=== PATIENT | female | born 1975 | race Asian ===

== ENCOUNTER 2018-12-19 08:19 | Outpatient (CLI) | payer OTHER ==
--- NOTE | 2018-12-19 09:19 | MRI ---
MRI Lumbar Spine WO Con History: Pain Comparison: None. Findings: T2 hyperintense foci are present within both renal parenchyma. The aortic contour is nonane urysmal. No retroperitoneal periaortic adenopathy. No marrow infiltrative process. Conus medullaris terminates near the mid L1 vertebral body. Levels are as follows: L1/L2: Normal disc. No neural foraminal or spinal canal narrowing. L2/L3: Normal disc. No neural foraminal or spinal canal narrowing. L3/L4: Mild disc desiccation. Low-grade circumferential disc bulge. Moderate hypertrophic facet arthr opathy. Moderate bilateral neural foraminal narrowing. Spinal canal measures approximately 9 mm. L4/L5: Moderate disc desiccation and height loss. Large posterior annular fissure. Moderate hypertrop hic facet arthropathy. Moderate bilateral neural foraminal narrowing. L5/S1: Moderate degenerative disc space height loss. Circumferential disc bulge. Large central annula r fissure posteriorly. Mild facet arthropathy. Mild bilateral neural foraminal narrowing. Impression: Mild multilevel spondylosis as described, greatest at L3/L4 and L4/L5.
== END 2018-12-19 08:20 | disposition home or self-care (01) ==
LOC: SCSMRI 08:19
PROVIDERS: ATTEND Physical Medicine & Rehabilitation
DX: M54.5 Low back pain (principal); M79.18 Myalgia, other site; M47.816 Spondylosis without myelopathy or radiculopathy, lumbar region
CPT/HCPCS: 72148

== ENCOUNTER 2019-07-03 12:24 | Outpatient (CLI) | payer OTHER ==
--- NOTE | 2019-07-03 16:06 | CT ---
EXAM: CT NECK SOFT TISSUE POST CONTRAST: HISTORY:Cervical lymphadenopathy. COMPARISON:None CORRELATION:None FINDINGS: Brain parenchyma: No pathologic enhancement of the visualized brain parenchyma. Sinuses: Adequate aeration of the visualized paranasal sinuses and mastoid air cells. Nasopharynx:Adequate aeration. No mucosal abnormality. Oral cavity:Aerodigestive tract is patent. No mucosal abnormality. Limited evaluation of the oral cav ity due to dental amalgam artifact. Midline fatty raphae of the tongue is preserved. Hypopharynx: No mucosal abnormality. Larynx: No mucosal abnormality. Paraspinal muscles: Symmetric attenuation of the paraspinal muscles and symmetric attenuation of the sternocleidomastoid muscles.. Parotid and salivary glands: Symmetric attenuation of the parotid and submandibular glands Thyroid gland: Unremarkable. Spine: Vertebral body height is maintained. No fracture. Moderate degenerative change at C5-C6. Varyi ng degrees of central canal stenosis and neural foraminal narrowing due to degenerative change. Limited evaluation due to technique. Lymph nodes: No evidence of lymphadenopathy by size criteria. Upper normal right level 2 lymph node m easures 1.4 x 0.7 cm. There is a nonenlarged 0.7 x 1.0 cm left level 2 lymph node. Palpable marker: Palpable marker in the left and right submandibular region. No evidence of an associ ated mass, hematoma, cystic collection or lymphadenopathy. Bilateral nonenlarged level 1 lymph nodes are noted. Lung apices and upper mediastinum: No acute abnormality. IMPRESSION: No evidence of an a mass or lymphadenopathy at the level of the palpable marker, bilaterally. Transcribed Date/Time: 07/03/2019 4:24 PM
== END 2019-07-03 12:25 | disposition home or self-care (01) ==
LOC: SCSCT 12:24
PROVIDERS: ATTEND Internal Medicine
DX: R59.0 Localized enlarged lymph nodes (principal)
CPT/HCPCS: 70491; 70492

== ENCOUNTER 2019-10-02 09:44 | Observation (INO) | payer OTHER ==
--- NOTE | 2019-10-02 10:08 | CT ---
CT HEAD WITHOUT IV CONTRAST COMPARISON: None HISTORY: Level 1 stroke. Right-sided facial numbness with intermittent right-sided weakness. TECHNIQUE: Axial CT imaging at 5 mm intervals from vertex through skull base without contrast FINDINGS: Low-density area seen in the medial right occipital lobe. This is only seen on a single slice selecti on may be attributable to volume averaging. There is no evidence of an acute infarction, hemorrhage, mass effect, or midline shift. The ventricular system is normal in size, shape, and posit ion. Visualized paranasal sinuses are clear. Osseous structures appear intact. IMPRESSION: 1. No acute intracranial abnormality demonstrated. 2. Above findings discussed with Dr. Roberto in the emergency department on 10/02/2019 at 1004 hours.
[2019-10-02 10:13] LABS: #Basophils 0.1 thou/uL (0.0-0.2); #Eosinphils 0.1 thou/uL (0.0-0.7); #Lymphocytes 3.3 thou/uL (1.20-3.40); #Monocytes 0.3 thou/uL (0.11-0.59); #Neutrophils 4.6 thou/uL (1.40-6.50); %Basophils 1.4 % (0.0-1.0); %Eosinophils 1.5 % (0.0-10.0); %Lymphocytes 39.3 % (21.0-51.0); %Monocytes 3.6 % (0.0-10.0); %Neutrophils 54.2 % (42.0-75.0); Hemoglobin 14.8 g/dL (12.0-16.0); Mean Corpuscular Hemoglobin 28.7 pg (27.0-31.0); Mean Corpuscular Volume 89.7 fL (78.0-98.0); Mean Platelet Volume 6.7 fL (7.4-10.4); Platelet Count 378 thou/uL (130-400); RBC Distribution Width 12.5 % (11.5-14.5); Red Blood Cell (RBC) Count 5.17 mill/uL (4.20-5.40); White Blood Cell (WBC) Count 8.5 thou/uL (4.8-10.8)
[2019-10-02 10:22] LABS: INR-International Normal Ratio 0.9; PTT 27.8 SEC (22.9-36.1); Prothrombin Time 12.4 sec (12.0-14.7)
[2019-10-02 10:38] LABS: ALT (SGPT) 20 U/L (8-55); AST (SGOT) 15 U/L (5-34); Albumin 4.3 g/dL (3.5-5.0); Alkaline Phosphatase 49 U/L (40-110); Anion Gap 14 mmol/L (10-20); BUN (Urea Nitrogen) 9 mg/dL (7.0-18.7); Bilirubin, Total 0.8 mg/dL (0.2-1.2); Calc. Creatinine Clearance 0 mL/min (70-130); Calcium 9.8 mg/dL (7.8-10.44); Carbon Dioxide 26 mmol/L (22-29); Chloride 103 mmol/L (98-107); Estimated GFR-MDRD 43; Globulin 3.1 g/dL (2.4-3.5); Glucose 148 mg/dL (70-105); Protein, Total 7.4 g/dL (6.0-8.3); Sodium 139 mmol/L (136-145)
[2019-10-02 11:52] LABS: Bilirubin Negative (Negative); Blood, Urine Negative (Negative); Clarity Clear (Clear); Glucose, Urine (Dipstick) Normal (Negative); Leukocyte Negative Leu/uL (Negative); Nitrite Negative (Negative); Protein, Urine (Dipstick) Negative (Neg-Trace); Urobilinogen Normal mg/dL (Less than 2)
[2019-10-02] MEDS ORDERED: Aspirin Chewable 81 MG TAB ONE (12:28)
--- NOTE | 2019-10-02 14:05 | RAD ---
PORTABLE CHEST ONE VIEW: 10/02/19 at 9:48 a.m. HISTORY: Right sided facial numbness. FINDINGS: The heart size is normal. The lungs are clear. No significant bony abnormalities are seen. IMPRESSION: No acute process. POS: SIMEON
[2019-10-02 14:28] VITALS: BMI 30.9
--- NOTE | 2019-10-02 18:04 | PDOC.EVN ---
Event Note - Event Note Event Note: Ms. Ayala was see and examined and discussed with Davida MCCARTHY, and agree with the assessment, and plan.
[2019-10-02] MEDS: Sodium Chloride 0.9% 1,000 ML IV SCH (18:05)
--- NOTE | 2019-10-02 19:41 | HP ---
PRIMARY CARE PHYSICIAN: Neal Chowdary MD CHIEF COMPLAINT: Facial numbness and arm numbness. HISTORY OF PRESENT ILLNESS: The patient is a very pleasant 44-year-old female with past medical history significant for hypertension and acute kidney injury back in 2014. She presents to the ER today for facial numbness that began at work. 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 She had a slight headache at the time. This numbness had no aggravating or relieving factors to it and it still continues now, although the facial droop that she was told she had earlier has since resolved. She also states that the coordination in her right arm has improved. No associated nausea or vomiting. She feels slightly dizzy when she does move from sitting to standing or lying to sitting. She denies any chest pain or shortness of breath. No fevers. Not on any kind of blood thinning medications. Denies any ill contacts. She does admit to having multiple stressors at home currently and was almost tearful when talking about it. . Today, in the ER, they completed an EKG, which showed sinus rhythm at 87 beats per minute and a head CT which was negative for any acute hemorrhage. She was deemed not a tPA candidate because of a low NIH stroke score and it was perceived that the risk of bleeding was too significant for the deficits that she was having at that time. She was given aspirin 324 mg while in the ER after swallow evaluation and was admitted to our Stroke unit. PAST MEDICAL HISTORY: Significant for hypertension, GERD, depression with suicide attempts in the past, insomnia, acute kidney injury in 2014, and IBS. PAST SURGICAL HISTORY: Right wrist surgery, tubal ligation. ALLERGIES: PENICILLIN, WHICH CAUSES ANGIOEDEMA. MEDICATIONS: Include: 1. Lansoprazole 30 mg p.o. daily. 2. Celecoxib 200 mg p.o. b.i.d. p.r.n. 3. Lisinopril 20 mg p.o. daily. 4. Citalopram 30 mg p.o. at bedtime. 5. Clonazepam 1 mg p.o. at bedtime. 6. Pregabalin 100 mg p.o. b.i.d. 7. Bupropion 300 mg p.o. daily. 8. Flexeril 10 mg p.o. q.4 hours p.r.n. 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 She lives with her boyfriend and her two kids, age 22 and 15. She occasionally drinks alcohol. Denies any smoking or tobacco history. Denies any recreational drug use. FAMILY HISTORY: Mom is positive for thyroid cancer, hypertension, depression, diabetes. Dad at the age of 70. He was positive for COPD, hypertension, seizures, and depression. Brother is positive for diabetes. REVIEW OF SYSTEMS: All other review of systems are negative unless noted in the HPI. PHYSICAL EXAMINATION: VITAL SIGNS: Temp 98.4, pulse 85, respiratory rate 20, 97% on room air, blood pressure 111/65. GENERAL APPEARANCE: Age-appropriate female, in no acute distress. She was sleeping upon entry in the room but easily awakens and conversational. HEENT: PERRLA. NECK: Supple and symmetric without lymphadenopathy, JVD or bruits. HEART: Regular rate and rhythm without murmurs, gallops, or rubs. LUNGS: Clear to auscultation. No wheezes, rhonchi, or rales. ABDOMEN: Soft, nontender, nondistended. Positive bowel sounds. No masses. EXTREMITIES: No cyanosis, clubbing, or edema. Bilateral equal strength to upper and lower extremities. Normal muscle tone. PSYCHIATRY: Normal affect and behavior. Friendly. NEUROLOGICAL: Facial paresthesias to the right side. Cranial nerves intact. LABORATORY DATA: White blood cell count 8.5, hemoglobin and hematocrit 14.8 and 46.3. Sodium 139, potassium 4.0, BUN 9, creatinine 1.34, GFR 43, glucose 148. Urine shows no sign of infection. IMPRESSION: 1. Transient ischemic attack, acute, stable. 2. Facial paresthesias, acute, stable. 3. Suspected chronic kidney disease, chronic. PLAN: We will start her on a baby aspirin along with a statin and continue her home medications. We will arrange for an MRI of her brain and her spine without contrast along with a carotid Doppler ultrasound and echo. With the suspected chronic kidney disease, we will run IV fluids to see if there is any improvement overnight and draw another BMP in the morning along with CBC, hemoglobin A1c due to the elevated blood glucose in the ER and a fasting lipid along with a TSH. Stroke Team will evaluate her. She is to have neuro checks every 4 hours. Orthostatics are also to be included with her next set of vitals due to her complaining of dizziness when rising. Code status: FULL. DPOA; Maria L Lopez, her daughter. Her phone #[phone]. Job ID: [id number] MTDD
[2019-10-02] MEDS ORDERED: Atorvastatin Calcium 40 MG TAB PO SCH (21:00)
[2019-10-02] MEDS ORDERED: clonazePAM 1 MG TAB PO SCH (21:00)
[2019-10-02] MEDS ORDERED: Citalopram 20 MG TAB PO SCH (21:00)
[2019-10-02] MEDS: Pregabalin 50 MG CAP PO SCH (21:11)
[2019-10-03] MEDS: Sodium Chloride 0.9% 1,000 ML IV SCH ×2 (04:13→15:32)
[2019-10-03 05:11] LABS: #Basophils 0.1 thou/uL (0.0-0.2); #Eosinphils 0.2 thou/uL (0.0-0.7); #Lymphocytes 3.8 thou/uL (1.20-3.40); #Monocytes 0.4 thou/uL (0.11-0.59); #Neutrophils 3.3 thou/uL (1.40-6.50); %Basophils 1.3 % (0.0-1.0); %Lymphocytes 49.1 % (21.0-51.0); %Monocytes 5.1 % (0.0-10.0); %Neutrophils 42.5 % (42.0-75.0); Hemoglobin 13.2 g/dL (12.0-16.0); Mean Corpuscular HGB CONC 31.9 g/dL (32.0-36.0); Mean Corpuscular Hemoglobin 28.8 pg (27.0-31.0); Mean Corpuscular Volume 90.2 fL (78.0-98.0); Mean Platelet Volume 6.8 fL (7.4-10.4); Platelet Count 323 thou/uL (130-400); RBC Distribution Width 12.3 % (11.5-14.5); Red Blood Cell (RBC) Count 4.57 mill/uL (4.20-5.40); White Blood Cell (WBC) Count 7.8 thou/uL (4.8-10.8)
[2019-10-03 05:17] LABS: INR-International Normal Ratio 0.9; PTT 27.5 SEC (22.9-36.1)
[2019-10-03 05:28] LABS: Hemoglobin A1c 5.5 % (4.0-6.0)
[2019-10-03 06:17] LABS: Anion Gap 11 mmol/L (10-20); BUN (Urea Nitrogen) 11 mg/dL (7.0-18.7); Calc. Creatinine Clearance 82 mL/min (70-130); Calcium 8.2 mg/dL (7.8-10.44); Carbon Dioxide 24 mmol/L (22-29); Cardiac Risk 5.6 (Less than 4.5); Chloride 110 mmol/L (98-107); Cholesterol 191 mg/dl (< 200 Desired); Estimated GFR-MDRD 56; Glucose 100 mg/dL (70-105); HDL Cholesterol 34 mg/dL (>60 Neg Risk); LDL Cholesterol, Calculated 124 mg/dL; Potassium 3.8 mmol/L (3.5-5.1); Sodium 141 mmol/L (136-145); Triglycerides 166 mg/dL (Less than 150)
[2019-10-03] MEDS: Pregabalin 50 MG CAP PO SCH (08:04)
[2019-10-03] MEDS ORDERED: Lisinopril 20 MG TAB PO SCH (09:00)
[2019-10-03] MEDS ORDERED: Aspirin 81 mg Enteric Coated Tablet PO SCH (09:00)
[2019-10-03] MEDS ORDERED: Bupropion 150 MG XL TAB PO SCH (09:00)
--- NOTE | 2019-10-03 09:09 | MRI ---
MRI BRAIN WITHOUT CONTRAST: Indications: TIA. Right side numbness. FINDINGS: Ventricles have normal size and position. There is no evidence of restricted diffusion. No evidence o f acute infarct, mass, or hemorrhage. No significant white matter abnormality. The intracranial internal carotid arteries and cerebral arteries exhibit flow voids. IMPRESSION: Unremarkable MRI brain. POS: AGW
--- NOTE | 2019-10-03 09:38 | MRI ---
MRI CERVICAL SPINE WITHOUT CONTRAST: Indication: Arm numbness. FINDINGS: The cervical vertebrae maintain normal height and alignment. Mild degenerative changes are evident. M ild loss of disc space at C5-6 and C6-7. Mild anterior osteophytes seen anteriorly at these levels. F indings at each level are described: C2-3: No abnormality. C3-4: No significant disc bulge or protrusion. No central canal or foraminal stenosis. C4-5: Mild disc bulge and spondylosis flatten the thecal sac. The anterior subarachnoid space is pres erved. No central canal or foraminal stenosis. C5-6: Slightly more prominent broad based disc bulge and spondylosis replaces the anterior subarachno id space. No cord impingement. No evidence of foraminal stenosis. C6-7: Broad based disc bulge and spondylosis mildly efface the anterior subarachnoid space. No cord i mpingement. No foraminal stenosis. Cervical cord signal appears normal. IMPRESSION: Congenitally large spinal canal. Disc bulge and spondylosis slightly more pronounced at C5-6 and C6-7 . These changes mildly efface the anterior subarachnoid space at these levels. However, no central ca nal or foraminal stenosis identified. POS: AGW
--- NOTE | 2019-10-03 10:05 | ULT ---
BILATERAL CAROTID DUPLEX ULTRASOUND: History: TIA FINDINGS: Real-time color doppler evaluation of the right and left carotid systems was performed. On the right side, peak systolic velocity of the common carotid 102 cm/sec. Internal carotid velocity 79 cm/sec, e xternal carotid velocities 105 cm/sec. On the left side, peak systolic velocity of the common carotid 105 cm/sec. Internal carotid velocity 109 cm/sec, external carotid velocities 122 cm/sec. Vertebral flow is antegrade bilaterally. IMPRESSION: No evidence of hemodynamically significant stenosis of either internal carotid artery. POS: TRACE
--- NOTE | 2019-10-03 15:13 | CON ---
DATE OF CONSULTATION: 10/03/2019 REASON FOR CONSULTATION: Right face and arm numbness. HISTORY OF PRESENT ILLNESS: Ms. 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 The numbness persisted and she also has tingling in her right arm and problem with coordination. She does admit to having a mild headache at this time. She denies focal weakness, nausea, vomiting, chest pain, vertigo, dizziness, loss of vision or loss of consciousness associated with right facial numbness and right arm numbness resolved at this time, but she continues to have right facial numbness and she came to the emergency room for evaluation, where EKG was done, which shows normal sinus rhythm. Head CT was negative for acute hemorrhage, and it was decided that because of low NIH score scale, she was not a candidate for tPA. She was given aspirin and admitted to the stroke unit for further evaluation. REVIEW OF SYSTEMS: All 10 systems were reviewed and were negative except pertinent positives and negatives mentioned in the HPI. PAST MEDICAL HISTORY: Hypertension, GERD, depression with suicide attempts in the past, insomnia, acute kidney injury in 2015, and irritable bowel syndrome. PAST SURGICAL HISTORY: Right wrist surgery and tubal ligation. ALLERGIES: PENICILLIN CAUSES ANGIOEDEMA. MEDICATIONS: 1. Lansoprazole 30 mg daily. 2. Celecoxib 200 mg b.i.d. 3. Lisinopril 20 mg daily. 4. Citalopram 30 mg b.i.d. 5. Clonazepam 1 mg at bedtime. 6. Pregabalin 100 mg p.o. b.i.d. 7. Bupropion 300 mg p.o. daily. 8. Flexeril 10 mg p.o. q.4 hours p.r.n. 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 Currently, the patient denies tobacco or illegal drug use. FAMILY HISTORY: Mother has thyroid cancer, depression, hypertension, and diabetes. Father also has history of hypertension and depression and she has a brother, who has diabetes. PHYSICAL EXAMINATION: VITAL SIGNS: Blood pressure was 110/80, pulse 88, and respiratory rate 18. GENERAL APPEARANCE: Pleasant female, in no acute distress. HEENT: Normocephalic and atraumatic. Pupils are equal and reactive to light. NECK: Supple. HEART: Regular rate and rhythm. CHEST: Clear. ABDOMEN: Soft. NEUROLOGIC: Mental status; the patient is alert and oriented to person, place, and time. Muscle tone and bulk are normal. Strength is 5/5 bilaterally. Reflexes , 2+ bilaterally. Sensory intact. Cerebellar, [id number] testing intact. Cranial nerves 2 through 12 are intact except for numbness in the V2-V3 distribution. Gait not tested because of the patient's safety reasons. DIAGNOSTIC STUDIES: Data reviewed. I reviewed the MRI of the brain, which was negative for acute intracranial pathology. Echocardiogram was essentially unremarkable. Carotid Dopplers were also negative. ASSESSMENT AND PLAN: A 44-year-old female with history significant for hypertension and depression, consulted for right facial and right arm paresthesias. There is a concern about TIA. MRI of brain was reviewed, which was negative for acute intracranial pathology. Carotid Dopplers were negative for significant stenosis. Echocardiogram was essentially unremarkable. Neuro checks every 4 hours. Agree with starting aspirin and statin for secondary stroke prevention. Continue home medications. Continue medical management per Primary Team. PT/OT/Speech. We will continue to follow. Thank you for the consult. Job ID: [id number] MTDD
[2019-10-03 15:36] VITALS: BP 120/71; TEMP 98.6
--- NOTE | 2019-10-04 09:08 | DIS ---
DATE OF ADMISSION: 10/02/2019 DATE OF DISCHARGE: 10/03/2019 DISCHARGE DISPOSITION AND FOLLOWUP: The patient is seen and examined on the day of discharge. She was discharged home with family. Denies any new complaints. INPATIENT CONSULT: Neurology. CLINICAL COURSE: The patient is a very pleasant 44-year-old female with past medical history significant for hypertension and acute kidney injury back in 2014. She presented to the ER for facial numbness and right arm coordination loss. She had a slight headache at the time. The numbness had no aggravating or relieving factors to it and she was also feeling slightly dizzy with positional changes. While she was admitted to the Stroke Unit, orthostatics were negative and she was given IV fluids to rehydrate her. She also had an MRI of her brain and cervical spine. Brain MRI was negative for any acute changes. Cervical spine did show a bulging cervical disk. She had a carotid Doppler ultrasound, which was negative for anything significant. Vital signs were stable while in the hospital. Neurology came and saw her and recommended aspirin and statin upon discharge, and for her to see Neurology for the cervical disk bulge. Today, in patient Neurology cleared her and she is deemed stable to go home with family. She was advised to follow up with her physician and also outpatient Neurology. FINAL DIAGNOSES: 1. Transient ischemic attack. 2. Cervical disk bulge. DISCHARGE MEDICATIONS: New medications include, 1. Aspirin 81 mg p.o. daily. 2. Lipitor 40 mg p.o. at bedtime. The patient is to resume; 1. Bupropion XL 300 mg p.o. daily. 2. Citalopram 30 mg p.o. at bedtime. 3. Clonazepam 1 mg p.o. at bedtime. 4. Lansoprazole 30 mg p.o. daily. 5. Lisinopril 20 mg p.o. daily. 6. Pregabalin 100 mg p.o. b.i.d. DISCHARGE INSTRUCTIONS: The patient was encouraged to follow up with her home physician, Dr. Chowdary within next week and also to make an appointment as soon as she can with Dr. Garcia with Neurology to follow up with the TIA and cervical disk bulge. She was also educated on signs and symptoms of TIA and how to take her new medications correctly. TIME SPENT: Total time coordinating the discharge of this patient was 25 minutes. Job ID: [id number] MTDD
--- NOTE | 2019-10-06 13:01 | EKG ---
Test Reason : STROKE ALERT Blood Pressure : / mmHG Vent. Rate : 087 BPM Atrial Rate : 087 BPM P-R Int : 166 ms QRS Dur : 094 ms QT Int : 354 ms P-R-T Axes : 056 042 036 degrees QTc Int : 425 ms Normal sinus rhythm Normal ECG No previous ECGs available Confirmed by KARLA GIVENS DO ([id number]), newspaper copy editor RUSH SLATER ([id number]) on 10/06/2019 1:00:56 PM Referred By: TOSHA Confirmed By:KARLA GIVENS DO
[2019-10-09 15:45] LABS: ANA Symphony (Qualitative) Negative (Negative); ANA Symphony (Quantitative) 0.2 Ratio (< 0.7 Negative); dsDNA IgG Antibody Less than 0.5 IU/mL (<10 Negative)
== END 2019-10-03 16:27 | disposition home or self-care (01) ==
LOC: ERS 09:44 → 2SE 12:45
PROVIDERS: ADMIT Internal Medicine; ATTEND Internal Medicine
DX: G45.9 Transient cerebral ischemic attack, unspecified (principal); M50.222 Other cervical disc displacement at C5-C6 level; M47.812 Spondylosis without myelopathy or radiculopathy, cervical region; I10 Essential (primary) hypertension; K21.9 Gastro-esophageal reflux disease without esophagitis; F32.9 Major depressive disorder, single episode, unspecified; G47.00 Insomnia, unspecified; K58.9 Irritable bowel syndrome, unspecified; Z91.5 Personal history of self-harm; Z79.899 Other long term (current) drug therapy; Z88.0 Allergy status to penicillin
CPT/HCPCS: 36415; 36416; 70450; 70551; 71045; 72141; 80048; 80053; 80061; 81003; 83036; 84443; 84484; 85025; 85610; 85730; 86038; 86225; 93005; 93306; 93880; 96360; 96361; G0378

== ENCOUNTER 2019-12-25 14:57 | Emergency (ER) | payer OTHER ==
[2019-12-25] MEDS ORDERED: Proparacaine 0.5% Opth 15 ML BOT ONE (15:14)
[2019-12-25] MEDS ORDERED: Fluorescein Opthalmic Strip ONE (15:14)
[2019-12-25] MEDS ORDERED: Ketorolac Tromethamine 30 MG/ML VIAL ONE (15:22)
== END 2019-12-25 16:02 | disposition home or self-care (01) ==
LOC: ERS 14:57
DX: L03.213 Periorbital cellulitis (principal); I10 Essential (primary) hypertension; K21.9 Gastro-esophageal reflux disease without esophagitis; F41.9 Anxiety disorder, unspecified; F32.9 Major depressive disorder, single episode, unspecified; G47.00 Insomnia, unspecified; Z79.899 Other long term (current) drug therapy
CPT/HCPCS: 96372; 99283; J1885